=== PATIENT | female | born 1950 | race Caucasian/White ===

== ENCOUNTER 2025-02-01 10:02 | Outpatient (CLI) | payer MEDICARE, OTHER ==
[2025-02-01] MEDS ORDERED: Iopamidol 300 61% 100 ML VIAL FS ONE (10:11)
[2025-02-01 11:59] LABS: Estimated GFR - POC 52.0
== END 2025-02-01 10:03 | disposition home or self-care (01) ==
LOC: CSHCT 10:02
PROVIDERS: ATTEND Surgery
DX: K40.90 Unilateral inguinal hernia, without obstruction or gangrene, not specified as recurrent (principal)
CPT/HCPCS: 36415; 72193; 82565

== ENCOUNTER 2025-04-26 09:49 | Outpatient (CLI) | payer OTHER | END 2025-04-26 09:50 | disposition home or self-care (01) | LOC: CSHDTY/OP 09:49 | PROVIDERS: ATTEND Nurse Practitioner Family | DX: Z71.3 Dietary counseling and surveillance (principal) | CPT/HCPCS: 97802 ==